=== PATIENT | female | born 2000 | race Caucasian/White ===

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

== ENCOUNTER 2019-05-26 08:00 | Emergency (ER) | payer OTHER ==
[~2019-05-26] VITALS: Ht 165.1 cm; Wt 91.0 kg
[~2019-05-26 08:00] MED LIST: AMOX1TAB10 PO; FLUT9.9S NASAL; IBUP800T48 PO; NAPR-985 PO; ONDA4TAB14 PO; PSEU120T11 PO
[2019-05-26 08:03] VITALS: Ht 165.1 cm; Wt 91.0 kg
[2019-05-26 09:51] VITALS: BP 127/78; PULSE 80; RESP 20
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
== END 2019-05-26 09:53 | disposition home or self-care (01) ==
LOC: FTE 08:00
DX: S00.83XA Contusion of other part of head, initial encounter (principal); F17.210 Nicotine dependence, cigarettes, uncomplicated; Y04.8XXA Assault by other bodily force, initial encounter
CPT/HCPCS: 70140; 70360; Z7502